=== PATIENT | female | born 1955 ===

== ENCOUNTER 2025-01-16 12:21 | Observation (INO) | payer BC, MEDICARE, OTHER ==
[2025-01-16 12:47] LABS: BASOPHILS ABSOLUTE AUTO 0.0 x10^3/uL (0.0-0.2); BASOPHILS PERCENT AUTO 0.4 % (0.2-1.2); EOSINOPHILS ABSOLUTE AUTO 0.2 x10^3/uL (0.0-0.5); EOSINOPHILS PERCENT AUTO 3.0 % (0.0-4.0); IMMATURE GRAN ABSOLUTE AUTO 0.02 x10^3/uL (0.00-0.07); IMMATURE GRAN PERCENT AUTO 0.30 % (0.00-0.43); LYMPHOCYTES ABSOLUTE AUTO 1.2 x10^3/uL (1.0-4.8); LYMPHOCYTES PERCENT AUTO 15.5 % (25.0-50.0); MONOCYTES ABSOLUTE AUTO 0.5 x10^3/uL (0.0-0.8); MONOCYTES PERCENT AUTO 6.6 % (2.0-11.0); NEUTROPHILS ABSOLUTE AUTO 5.7 x10^3/uL (1.8-7.7); NEUTROPHILS PERCENT AUTO 74.2 % (50.0-80.0); PLATELET COUNT,PLT 129 x10^3/uL (130-400); RED BLOOD CELL COUNT 4.30 x10^6/uL (4.00-5.50); WHITE BLOOD CELL COUNT,WBC 7.7 x10^3/uL (4.0-10.0)
[2025-01-16 13:06] LABS: A/G RATIO 1.27; ALANINE AMINOTRANSFERASE,ALT 16 U/L (14-59); ASPARTATE AMNIOTRANSFERASE,AST 19 U/L (15-37); BILIRUBIN TOTAL 0.7 mg/dL (0.2-1.0); BLOOD UREA NITROGEN,BUN 26 mg/dL (7-18); CARBON DIOXIDE,CO2 27 mmol/L (21-32); CHLORIDE,CL 107 mmol/L (98-107); CREATININE 1.8 mg/dL (0.55-1.02); ESTIMATED GFR 30 mL/min (>=60); GLUCOSE RANDOM 99 mg/dL (70-99); POTASSIUM,K 4.8 mmol/L (3.5-5.1); PROTEIN TOTAL,TP 6.8 g/dL (6.4-8.2); SODIUM,NA 144 mmol/L (136-145)
[2025-01-16 13:09] LABS: APPEARANCE,URINE CLEAR (CLEAR); GLUCOSE,URINE NEGATIVE (NEGATIVE); OCCULT BLOOD,URINE NEGATIVE (NEGATIVE)
[2025-01-16] MEDS ORDERED: Acetaminophen/HYDROcodone 325-5 MG Tab PO PRN (17:34)
[2025-01-16] MEDS ORDERED: Ondansetron 4 MG Tab.DIS PO PRN (17:34)
[2025-01-17 12:36] VITALS: BP 160/70; PULSE 48
== END 2025-01-17 11:48 ==
LOC: VM.ED 12:21 → VM.MS 16:00
PROVIDERS: ADMIT Family Medicine; ATTEND Family Medicine
DX: R40.4 Transient alteration of awareness (principal); I48.91 Unspecified atrial fibrillation; I12.9 Hypertensive chronic kidney disease with stage 1 through stage 4 chronic kidney disease, or unspecified chronic kidney disease; N18.32 Chronic kidney disease, stage 3b; R00.1 Bradycardia, unspecified; F03.90 Unspecified dementia, unspecified severity, without behavioral disturbance, psychotic disturbance, mood disturbance, and anxiety; I25.10 Atherosclerotic heart disease of native coronary artery without angina pectoris; E66.9 Obesity, unspecified; Z91.09 Other allergy status, other than to drugs and biological substances; Z88.0 Allergy status to penicillin; Z68.30 Body mass index [BMI] 30.0-30.9, adult; Z79.899 Other long term (current) drug therapy
CPT/HCPCS: 36415; 51702; 70450; 70551; 71045; 80053; 81003; 83605; 83735; 84443; 84484; 85025; 93005; 99284; 99285; A9270; G0378